=== PATIENT | female | born 1955 | race Two or more races ===

== ENCOUNTER 2021-08-28 14:52 | Emergency (ER) | payer BC, OTHER ==
[~2021-08-28] VITALS: Ht 170.2 cm; Wt 79.4 kg
== END 2021-08-28 18:12 | disposition home or self-care (01) ==
LOC: ER 14:52
DX: R53.81 Other malaise (principal); E03.9 Hypothyroidism, unspecified; G47.33 Obstructive sleep apnea (adult) (pediatric); Z88.2 Allergy status to sulfonamides; Z88.1 Allergy status to other antibiotic agents; K21.9 Gastro-esophageal reflux disease without esophagitis; Z20.822 Contact with and (suspected) exposure to COVID-19